=== PATIENT | male | born 1975 | race Caucasian/White ===

== ENCOUNTER 2017-10-05 11:26 | Emergency (ER) | payer MEDICAID, OTHER ==
[~2017-10-05] VITALS: Ht 175.3 cm; Wt 70.0 kg
[~2017-10-05 11:26] MED LIST: GABA300C3 PO; LANTINJ SQ
[2017-10-05 11:30] VITALS: BP 139/93; PULSE 110; RESP 16; TEMP 97.3; O2SAT 99
--- NOTE | 2017-10-05 13:16 | PD ---
HPI Chief Complaint: Oral / Dental Pain or Problem Time Seen by Provider: 12:24 Travel History International Travel<30 days: No Contact w/Intl Traveler<30days: No Traveled to known affect area: No History of Present Illness HPI 42-year-old male presents to the emergency room for evaluation of bilateral upper tooth pain for the past 3 weeks. Pain is constant, worsens when he eats or drinks. Patient states he has been taking multiple [id number] medications without relief in symptoms. Denies any fever, chills, nausea, vomiting, swelling, or drainage. He has an appointment with his dentist in 3 weeks. No chronic medical conditions or daily medications. History Past Medical Histgory Hx Cancer: No Hx Chemotherapy: No Hx Radiation Therapy: No Social History Alcohol Use: No ( ) Tobacco Use: No (QUIT OVER 10 YRS AGO) Allergies-Medications (Allergen,Severity, Reaction): Coded Allergies: No Known Allergies (Verified Adverse Reaction, Unknown, 10/05/17) Reported Meds & Prescriptions Reported Meds & Active Scripts Active Review of Systems Except as stated in HPI: all other systems reviewed are Neg Physical Exam Narrative GENERAL: Well-nourished, well-developed male in no acute distress. Afebrile. Ambulatory. SKIN: Focused skin assessment warm/dry. HEAD: Normocephalic. EYES: No scleral icterus. No injection or drainage. DENTAL: No loose or chipped teeth. No malocclusion. Fairly good dentition overall. Patient's pain is nonspecific. He reports tenderness around tooth #5 or 6 and 11 or 12. There is no surrounding erythema, induration, drainage. No facial edema. NECK: Supple, trachea midline. No JVD or lymphadenopathy. CARDIOVASCULAR: Regular rate and rhythm without murmurs, gallops, or rubs. RESPIRATORY: Breath sounds equal bilaterally. No accessory muscle use. Data Data Last Documented VS Vital Signs Date Time Temp Pulse Resp B/P (MAP) Pulse Ox O2 Delivery O2 Flow Rate FiO2 10/05/17 11:30 97.3 110 16 139/93 (108) 99 MDM Medical Screen Exam Complete: Yes Emergency Medical Condition: No Differential Diagnosis Dentalgia Narrative Course 42-year-old male presents to the emergency room for evaluation of bilateral upper tooth pain for the past 3 weeks. He has an appointment with his dentist in 3 weeks. Patient immediately requested something stronger than ibuprofen for pain. Review of electronic drug monitoring program shows that he received # 60 hydrocodone 3 weeks ago and should have 1 week of medication left. There is no evidence of infection. He was offered Peridex oral rinse and told to follow- up with his dentist. There are no urgent or emergent medical conditions at this time. A medical screening exam was performed: At the time of evaluation the presenting medical condition was determined not to be of an emergent nature. The patient was given the option of receiving additional care, but declined. Patient was given options for additional community resources from which to obtain care. The Patient Has Been advised to seek medical attention for their presenting complaint. The patient has been advised to return to the ER at any time if an emergent condition develops. Primary Impression: Encounter for medical screening examination Disposition: 01 DISCHARGE HOME Condition: Stable Celestina Solorio Oct 05, 2017 13:16
== END 2017-10-05 13:16 | disposition left against medical advice (07) ==
LOC: NEPD 11:26
DX: K08.89 Other specified disorders of teeth and supporting structures (principal); Z87.891 Personal history of nicotine dependence
CPT/HCPCS: 99281